=== PATIENT | female | born 1965 | race Caucasian/White ===

== ENCOUNTER 2017-01-21 17:14 | Emergency (ER) | payer MEDICARE ==
[~2017-01-21] VITALS: Ht 175.3 cm; Wt 75.0 kg
[~2017-01-21 17:14] MED LIST: CLON.5 PO; CYCL-36 PO; CYCL1PAK PO; DICL1GEL TOPICAL; ESOM1CAP6 PO; IBUP-238 PO; LAMI200T PO; METH750T2 PO; TRAZ150T75 PO; VENL100T PO
[2017-01-21 17:15] VITALS: BP 146/78; PULSE 109; RESP 24; TEMP 97.6; O2SAT 99
[2017-01-21 20:17] VITALS: BP 140/75; PULSE 77; RESP 20; TEMP 98.2; O2SAT 100
[2017-01-21] MEDS ORDERED: SODIUM CHLOR 0.9% 1000 ML INJ 1,000 ML IV SCH (20:31)
[2017-01-21] MEDS ORDERED: SODIUM CHLORIDE 0.9% FLUSH 10 ML FLUSH IV FLUSH PRN (20:45)
[2017-01-21] MEDS ORDERED: ONDANSETRON HCL 4 MG/2 ML VIAL IVP ONE (20:45)
[2017-01-21] MEDS ORDERED: FAMOTIDINE 20 MG/2 ML VIAL IV PUSH ONE (20:45)
[2017-01-21] MEDS ORDERED: MORPHINE SULFATE 4 MG/ML INJ IV PUSH ONE (20:45)
[2017-01-21 20:56] LABS: AUTOMATED NEUTROPHIL # 5.3 TH/MM3 (1.8-7.7); BASOPHIL % 0.5 % (0.0-2.0); EOSINOPHIL # 0.3 TH/MM3 (0-0.4); HEMATOCRIT 42.6 % (35.0-46.0); HEMO FLAGS DIFF FINAL; LYMPH % 31.7 % (9.0-44.0); LYMPHOCYTE # 2.9 TH/MM3 (1.0-4.8); MEAN CELL VOLUME 96.7 FL (80.0-100.0); MEAN CORPUSCULAR HEMOGLOBIN 32.4 PG (27.0-34.0); MEAN CORPUSCULAR HGB CONC 33.5 % (32.0-36.0); MONO % 6.4 % (0.0-8.0); NEUT % 58.4 % (16.0-70.0); PLATELET COUNT 266 TH/MM3 (150-450); RED CELL DISTRIBUTION WIDTH 12.5 % (11.6-17.2); WHITE BLOOD COUNT 9.1 TH/MM3 (4.0-11.0)
[2017-01-21 20:58] LABS: BLOOD, URINE NEG (NEG); COMMENT (UR) CULT NOT INDICATED; CULTURE IF INDICATED CULT NOT INDICATED; GLUCOSE,URINE NEG (NEG); KETONE, URINE NEG (NEG); NITRITE,URINE NEG (NEG); PH, URINE 6.5 (5.0-8.5); SQUAMOUS EPITHELIAL CELL URINE 2 /hpf (0-5); URINE COLOR LIGHT-YELLOW (YELLW/STRAW)
--- NOTE | 2017-01-21 21:00 | RADRPT ---
EXAM DATE/TIME: 01/21/2017 20:34 [facility] COMPARISON: CHEST SINGLE AP, June 02, 2014, 17:08. INDICATIONS : Evaluate for free air. Nausea and vomiting. No bowel movement in 10 days. MEDICAL HISTORY : None. SURGICAL HISTORY : Fusion, cervical. ENCOUNTER: Initial ACUITY: 1 week PAIN SCORE: 5/10 LOCATION: Bilateral chest FINDINGS: The lungs are clear without infiltrate, nodule, or mass. There is no appreciable pleural effusion fo r technique. Heart and mediastinum are unremarkable. There are old healed rib fractures in the left chest. CONCLUSION: No acute cardiopulmonary disease. Mahesh Aldridge MD on January 21, 2017 at 20:58 Board Certified Radiologist. This report was verified electronically.
[2017-01-21 21:03] LABS: APTT (PATIENT) 28.7 SEC (24.3-30.1); PROTHROMBIN TIME - PATIENT 10.7 SEC (9.8-11.6)
[2017-01-21] MEDS ORDERED: DIATRIZOATE MEGLUM/DIATRIZOATE SOD 9 ML CUP ONE (21:07)
--- NOTE | 2017-01-21 21:09 | PD ---
HPI Chief Complaint: Abdominal Pain Time Seen by Provider: 20:15 Travel History International Travel<30 days: No Contact w/Intl Traveler<30days: No Traveled to known affect area: No History of Present Illness HPI Patient is a 51-year-old female who presents to emergency room with complaints of abdominal pain and constipation. Patient reports that for the past 1.5 weeks , she has not had a bowel movement. Patient reports that for the past 2 days, she has had intractable nausea and vomiting. Patient did see Dr. Ledesma's partner today with GI and was told that she would need a colonscopy next week. Reports that he did give her medication to help with her constipation, reports that this did not help with her symptoms. Patient reports that she has severe abdominal pain, lower abdominal cramping, reports that she is concerned for possible small bowel obstruction as she has history of adhesions in the past. Patient reports that she has had history of cholecystectomy, appendectomy, C- section, tubal ligation, history of C5 to C7 neck fusion. Patient denies fevers or chills. Patient with no other complaints. PFSH Past Medical History Medical History: Denies Significant Hx Hx Anticoagulant Therapy: No Autoimmune Disease: Yes (lupus) Anxiety: Yes Depression: Yes Cardiovascular Problems: No Chemotherapy: No Cerebrovascular Accident: No Diabetes: No Diminished Hearing: No Respiratory: No Seizures: Yes (last seizure 2009) ?: Not Menopausal: Yes Tubal Ligation: Yes Past Surgical History Abdominal Surgery: No Appendectomy: Yes Section: Yes Cholecystectomy: Yes Gynecologic Surgery: Yes Hysterectomy: No Tonsillectomy: Yes Social History Alcohol Use: Yes (OCCASIONAL) Tobacco Use: Yes (1/2 ppd) Substance Use: No Allergies-Medications (Allergen,Severity, Reaction): Coded Allergies: No Known Allergies (Unverified , 01/21/17) Reported Meds & Prescriptions Reported Meds & Active Scripts Active Reported Clonazepam 1 Mg Tab 1 Mg PO BID Trazodone (Trazodone HCl) 150 Mg Tab 150 Mg PO HS Lamictal (Lamotrigine) 200 Mg Tab 200 Mg PO DAILY Effexor XR 24 HR (Venlafaxine HCl) 150 Mg Cap 300 Mg PO DAILY Review of Systems General / Constitutional: No: Fever Eyes: No: Visual changes HENT: No: Headaches Cardiovascular: No: Chest Pain or Discomfort Respiratory: No: Shortness of Breath Gastrointestinal: Positive: Nausea, Vomiting, Abdominal Pain, Constipation Genitourinary: No: Dysuria Musculoskeletal: No: Pain Skin: No Rash Neurologic: No: Weakness Psychiatric: No: Depression Endocrine: No: Polydipsia Hematologic/Lymphatic: No: Easy Bruising Physical Exam Narrative GENERAL: MILD DISTRESS SKIN: Focused skin assessment warm/dry. HEAD: Atraumatic. Normocephalic. EYES: Pupils equal and round. No scleral icterus. No injection or drainage. ENT: No nasal bleeding or discharge. Mucous membranes pink and moist. NECK: Trachea midline. No JVD. CARDIOVASCULAR: Regular rate and rhythm. No murmur appreciated. RESPIRATORY: No accessory muscle use. Clear to auscultation. Breath sounds equal bilaterally. GASTROINTESTINAL: Abdomen distended, diffusely tender on exam MUSCULOSKELETAL: No obvious deformities. No clubbing. No cyanosis. No edema. NEUROLOGICAL: Awake and alert. No obvious cranial nerve deficits. Motor grossly within normal limits. Normal speech. PSYCHIATRIC: Appropriate mood and affect; insight and judgment normal. Data Data Last Documented VS Vital Signs Date Time Temp Pulse Resp B/P Pulse Ox O2 Delivery O2 Flow Rate FiO2 01/21/17 20:50 Room Air 01/21/17 20:17 98.2 77 20 140/75 100 Orders Complete Blood Count With Diff (01/21/17 20:31) Comprehensive Metabolic Panel (01/21/17 20:31) Lipase (01/21/17 20:31) Prothrombin Time / Inr (Pt) (01/21/17 20:31) Act Partial Throm Time (Ptt) (01/21/17 20:31) Urinalysis - C+S If Indicated (01/21/17 20:31) Ct Abd/Pel W Iv Contrast(Rout) (01/21/17 20:31) Iv Access Insert/Monitor (01/21/17 20:31) Oximetry (01/21/17 20:31) Morphine Inj (Morphine Inj) (01/21/17 20:45) Ondansetron Inj (Zofran Inj) (01/21/17 20:45) Sodium Chlor 0.9% 1000 Ml Inj (Ns 1000 M (01/21/17 20:31) Sodium Chloride 0.9% Flush (Ns Flush) (01/21/17 20:45) Chest, Single Ap (01/21/17 20:31) Famotidine Inj (Pepcid Inj) (01/21/17 20:45) Oral Contrast - Adult (01/21/17 20:51) Diatrizoate Liq ( Gastroview Liq) (01/21/17 21:07) Diphenhydramine Inj (Benadryl Inj) (01/21/17 22:00) Iohexol 350 Inj (Omnipaque 350 Inj) (01/21/17 22:33) Lactulose Liq (Lactulose Liq) (01/21/17 23:15) Labs Laboratory Tests Test 01/21/17 20:15 White Blood Count 9.1 TH/MM3 Red Blood Count 4.40 MIL/MM3 Hemoglobin 14.3 GM/DL Hematocrit 42.6 % Mean Corpuscular Volume 96.7 FL Mean Corpuscular Hemoglobin 32.4 PG Mean Corpuscular Hemoglobin 33.5 % Concent Red Cell Distribution Width 12.5 % Platelet Count 266 TH/MM3 Mean Platelet Volume 9.0 FL Neutrophils (%) (Auto) 58.4 % Lymphocytes (%) (Auto) 31.7 % Monocytes (%) (Auto) 6.4 % Eosinophils (%) (Auto) 3.0 % Basophils (%) (Auto) 0.5 % Neutrophils # (Auto) 5.3 TH/MM3 Lymphocytes # (Auto) 2.9 TH/MM3 Monocytes # (Auto) 0.6 TH/MM3 Eosinophils # (Auto) 0.3 TH/MM3 Basophils # (Auto) 0.0 TH/MM3 CBC Comment DIFF FINAL Differential Comment Prothrombin Time 10.7 SEC Prothromb Time International 1.0 RATIO Ratio Activated Partial 28.7 SEC Thromboplast Time Urine Color LIGHT-YELLOW Urine Turbidity CLEAR Urine pH 6.5 Urine Specific [place] 1.005 Urine Protein NEG mg/dL Urine Glucose (UA) NEG mg/dL Urine Ketones NEG mg/dL Urine Occult Blood NEG Urine Nitrite NEG Urine Bilirubin NEG Urine Urobilinogen LESS THAN 2.0 MG/DL Urine Leukocyte Esterase SMALL Urine WBC 2 /hpf Urine Squamous Epithelial 2 /hpf Cells Microscopic Urinalysis Comment CULT NOT INDICATED Sodium Level 136 MEQ/L Potassium Level 3.5 MEQ/L Chloride Level 101 MEQ/L Carbon Dioxide Level 26.6 MEQ/L Anion Gap 8 MEQ/L Blood Urea Nitrogen 13 MG/DL Creatinine 0.83 MG/DL Estimat Glomerular Filtration 72 ML/MIN Rate Random Glucose 85 MG/DL Calcium Level 9.3 MG/DL Total Bilirubin 0.3 MG/DL Aspartate Amino Transf 55 U/L (AST/SGOT) Alanine Aminotransferase 80 U/L (ALT/SGPT) Alkaline Phosphatase 137 U/L Total Protein 7.8 GM/DL Albumin 4.0 GM/DL Lipase 121 U/L MDM Medical Decision Making Medical Screen Exam Complete: Yes Emergency Medical Condition: Yes Interpretation(s) Vital Signs Date Time Temp Pulse Resp B/P Pulse Ox O2 Delivery O2 Flow Rate FiO2 01/21/17 20:50 Room Air 01/21/17 20:17 98.2 77 20 140/75 100 Room Air 01/21/17 17:15 97.6 109 24 146/78 99 Room Air Differential Diagnosis Small bowel obstruction, colitis, electrolyte abnormality, constipation Narrative Course Patient is a 51 year old female who presents to ER with c/o of constipation for 1.5 week. Reports that for the past 2 days, she has had intractable N/V. She did follow up with GI today and was scheduled for a colonscopy next week. Reports severe pain to her abdomen. Plan to obtain lab work. Patient will drink for CT of abdomen and pelvis. Plan to evaluate for SBO. Vital Signs Date Time Temp Pulse Resp B/P Pulse Ox O2 Delivery O2 Flow Rate FiO2 01/21/17 20:50 Room Air 01/21/17 20:17 98.2 77 20 140/75 100 Room Air 01/21/17 17:15 97.6 109 24 146/78 99 Room Air Laboratory Tests Test 01/21/17 20:15 White Blood Count 9.1 TH/MM3 (4.0-11.0) Red Blood Count 4.40 MIL/MM3 (4.00-5.30) Hemoglobin 14.3 GM/DL (11.6-15.3) Hematocrit 42.6 % (35.0-46.0) Mean Corpuscular Volume 96.7 FL (80.0-100.0) Mean Corpuscular Hemoglobin 32.4 PG (27.0-34.0) Mean Corpuscular Hemoglobin 33.5 % Concent (32.0-36.0) Red Cell Distribution Width 12.5 % (11.6-17.2) Platelet Count 266 TH/MM3 (150-450) Mean Platelet Volume 9.0 FL (7.0-11.0) Neutrophils (%) (Auto) 58.4 % (16.0-70.0) Lymphocytes (%) (Auto) 31.7 % (9.0-44.0) Monocytes (%) (Auto) 6.4 % (0.0-8.0) Eosinophils (%) (Auto) 3.0 % (0.0-4.0) Basophils (%) (Auto) 0.5 % (0.0-2.0) Neutrophils # (Auto) 5.3 TH/MM3 (1.8-7.7) Lymphocytes # (Auto) 2.9 TH/MM3 (1.0-4.8) Monocytes # (Auto) 0.6 TH/MM3 (0-0.9) Eosinophils # (Auto) 0.3 TH/MM3 (0-0.4) Basophils # (Auto) 0.0 TH/MM3 (0-0.2) CBC Comment DIFF FINAL Differential Comment Prothrombin Time 10.7 SEC (9.8-11.6) Prothromb Time International 1.0 RATIO Ratio Activated Partial 28.7 SEC Thromboplast Time (24.3-30.1) Urine Color LIGHT-YELLOW (YELLW/STRAW) Urine Turbidity CLEAR (CLEAR) Urine pH 6.5 (5.0-8.5) Urine Specific [place] 1.005 (1.002-1.035) Urine Protein NEG mg/dL (NEG-TRACE) Urine Glucose (UA) NEG mg/dL (NEG) Urine Ketones NEG mg/dL (NEG) Urine Occult Blood NEG (NEG) Urine Nitrite NEG (NEG) Urine Bilirubin NEG (NEG) Urine Urobilinogen LESS THAN 2.0 MG/DL (LESS THAN 2.0) Urine Leukocyte Esterase SMALL (NEG) Urine WBC 2 /hpf (0-5) Urine Squamous Epithelial 2 /hpf (0-5) Cells Microscopic Urinalysis Comment CULT NOT INDICATED Sodium Level 136 MEQ/L (136-145) Potassium Level 3.5 MEQ/L (3.5-5.1) Chloride Level 101 MEQ/L (98-107) Carbon Dioxide Level 26.6 MEQ/L (21.0-32.0) Anion Gap 8 MEQ/L (5-15) Blood Urea Nitrogen 13 MG/DL (7-18) Creatinine 0.83 MG/DL (0.50-1.00) Estimat Glomerular Filtration 72 ML/MIN (>89) Rate Random Glucose 85 MG/DL (74-106) Calcium Level 9.3 MG/DL (8.5-10.1) Total Bilirubin 0.3 MG/DL (0.2-1.0) Aspartate Amino Transf 55 U/L (15-37) (AST/SGOT) Alanine Aminotransferase 80 U/L (10-53) (ALT/SGPT) Alkaline Phosphatase 137 U/L (45-117) Total Protein 7.8 GM/DL (6.4-8.2) Albumin 4.0 GM/DL (3.4-5.0) Lipase 121 U/L (73-393) Last Impressions Chest X-Ray 01/21/172030 Signed Impressions: Service Date/Time: December 20:34 - CONCLUSION: No acute cardiopulmonary disease. Mahesh Aldridge MD Abdomen/Pelvis CT 01/21/172030 Signed Impressions: Service Date/Time: December 22:29 - CONCLUSION: Slight fatty liver, otherwise unremarkable study. Mahesh Aldridge MD I reviewed all labs and all studies with patient in detail. Patient will follow-up with her primary care doctor and return to emergency room as needed. Signs and symptoms of acute abdomen was reviewed with patient. 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
[2017-01-21 21:10] LABS: ANION GAP 8 MEQ/L (5-15); AST (GOT) 55 U/L (15-37); BICARBONATE 26.6 MEQ/L (21.0-32.0); BLOOD UREA NITROGEN 13 MG/DL (7-18); CHLORIDE 101 MEQ/L (98-107); GLOMERULAR FILTRATION RATE 72 ML/MIN (>89); POTASSIUM 3.5 MEQ/L (3.5-5.1); SODIUM (NA) 136 MEQ/L (136-145)
[2017-01-21 21:14] LABS: ALKALINE PHOSPHATASE 137 U/L (45-117); ALT (GPT) 80 U/L (10-53); TOTAL BILIRUBIN ADULT 0.3 MG/DL (0.2-1.0)
[2017-01-21] MEDS ORDERED: LAMI200T PO (21:30)
[2017-01-21] MEDS ORDERED: CLON1TAB PO (21:30)
[2017-01-21] MEDS ORDERED: EFFE150C PO (21:30)
[2017-01-21] MEDS ORDERED: TRAZ150T75 PO (21:30)
[2017-01-21] MEDS ORDERED: diphenhydrAMINE HCL 50 MG/ML VIAL IV PUSH ONE (22:00)
[2017-01-21] MEDS ORDERED: IOHEXOL 350 MG/ML 10 ML VIAL (for RAD DIAG) IV ONE (22:33)
--- NOTE | 2017-01-21 22:44 | RADRPT ---
EXAM DATE/TIME: 01/21/2017 22:29 [facility] COMPARISON: No previous studies available for comparison. INDICATIONS : Abdominal pain and constipation. IV CONTRAST: 100 cc Omnipaque 350 (iohexol) IV ORAL CONTRAST: Prescribed oral contrast ingested. RADIATION DOSE: 8.50 CTDIvol (mGy) MEDICAL HISTORY : Lupus. SURGICAL HISTORY : Appendectomy. Cholecystectomy.Tubal ligation. ENCOUNTER: Initial ACUITY: 1 week PAIN SCALE: 5/10 LOCATION: abdomen TECHNIQUE: Volumetric scanning of the abdomen and pelvis was performed. Using automated exposure control and adjustment of the mA and/or kV according to patient size, radiation dose was kept as low as reasonably achievable to obtain optimal diagnostic quality images. FINDINGS: CT Abdomen: The spleen, pancreas, kidneys, adrenals are unremarkable. There is no evidence for any ap preciable pathological adenopathy, free fluid, or bowel obstruction. There is evidence for prior cho lecystectomy. The liver is fatty without focal lesions or technique. CT pelvis: There is no evidence for mass, abscess formation, or any significant adenopathy within the pelvis. There is moderate amount of stool throughout the colon. CONCLUSION: Slight fatty liver, otherwise unremarkable study. Mahesh Aldridge MD on January 21, 2017 at 22:39 Board Certified Radiologist. This report was verified electronically.
[2017-01-21] MEDS ORDERED: LACT10SO PO (23:08)
[2017-01-21] MEDS ORDERED: LACTULOSE SYRUP 20 GM/30 ML CUP PO ONE (23:15)
== END 2017-01-21 23:49 | disposition home or self-care (01) ==
LOC: NEPD 17:14
DX: K59.00 Constipation, unspecified (principal)
CPT/HCPCS: 71010; 74177; 80053; 81001; 83690; 85025; 85610; 85730; 96361; 96374; 96375; 99284; J1200; J2270; J2405; J7030; Q9963; Q9967